=== PATIENT | female | born 1980 | race Two or more races ===

== ENCOUNTER 2023-04-06 20:20 | Emergency (ER) | payer MEDICAID, SELFPAY ==
--- NOTE | ~2023-04-06 | CT_ITS ---
EXAMINATION: CT ABDOMEN AND PELVIS WITHOUT CONTRAST CLINICAL INFORMATION: Lower abdominal pain, epigastric pain COMPARISON: None available. TECHNIQUE: Multidetector volumetric imaging was performed from the superior aspect of the liver through the pubic symphysis. Sagittal and coronal reformatted images were obtained on the technologist's workstation. This CT examination was performed using dose optimization techniques as appropriate, variously including the following: *Automated exposure control *Adjustment of mA and/or kV according to patient size (this includes techniques or standardized protocols for targeted exams where dose is matched to indication/reason for exam; i.e. extremities or head) *Use of iterative reconstruction technique DLP: 929 mGy-cm FINDINGS: LUNG BASES: The visualized lung bases are unremarkable. LIVER, GALLBLADDER, AND BILIARY TREE: The liver is normal in size, shape, and attenuation. No focal hepatic lesion or biliary ductal dilatation is identified on this noncontrast exam. The gallbladder is unremarkable with no evidence of radiopaque gallstones, gallbladder wall thickening, or obvious pericholecystic inflammatory changes. PANCREAS: Unremarkable. SPLEEN: Unremarkable. ADRENAL GLANDS: Unremarkable. KIDNEYS AND URETERS: No hydronephrosis or obstructing calculus. BLADDER: Unremarkable. GASTROINTESTINAL TRACT: No evidence of bowel obstruction or significant wall thickening. Appendix is suspected to be collapsed. No free fluid or free air is seen. ABDOMINAL WALL: No significant hernia is appreciated. LYMPH NODES: Normal. VASCULAR: Scattered atherosclerotic calcification. PELVIC VISCERA: Grossly unremarkable. OSSEOUS STRUCTURES: Degenerative endplate changes in the thoracic spine. CT/CT abdomen pelvis wo IV con IMPRESSION: No acute findings identified in the abdomen/pelvis.
[2023-04-06 20:51] VITALS: BP 144/75; PULSE 78; RESP 16; TEMP 37; O2SAT 98; BMI 40.5
--- NOTE | 2023-04-06 20:52 | ED_ITS ---
HPI - General Adult General Chief complaint: Abdominal Pain Stated complaint: upper abd pain Time Seen by Provider: 04/07/23 00:07 Source: patient Mode of arrival: ambulatory Limitations: no limitations History of Present Illness HPI narrative: Patient complaining of diffuse abdominal pain diarrhea lower abdominal pain last few days had history of right ovarian cyst status post oophorectomy in 10/06 no fever no chills patient to oxycodone felt better no fever no chills no urinary symptoms no vaginal discharge Related Data Previous Rx's Medication Instructions Recorded dicyclomine 20 mg tablet 20 mg PO QID PRN abdominal pain 04/07/23 #20 tabs ondansetron 4 mg disintegrating 4 mg PO Q6-8H PRN nausea and 04/07/23 tablet vomiting #7 tabs Allergies Allergy/AdvReac Type Severity Reaction Status Date / Time No Known Allergies Allergy Verified 04/06/23 20:56 Review of Systems 2 Review of Systems: Yes all other systems are reviewed and are negative PMFSH Social History Social History Advance Directives: No Advance Directives Information Provided: Yes Physical Exam ED Vital Signs: Vital Signs - 24 hr 04/06/23 20:51 04/06/23 23:44 Temperature 98.6 F 97.6 F Pulse Rate 78 76 Respiratory Rate 16 18 Blood Pressure 144/75 H 150/51 H Pulse Oximetry 98 100 Oxygen Delivery Method Room Air BMI result Body Mass Index 40.5 Appearance: Alert. Oriented X3. No acute distress. ENT: Pharynx normal. Oral Mucosa moist Neck: Normal inspection. Neck supple. CVS: Normal heart rate and rhythm. Pulses normal. Respiratory: No respiratory distress. Equal air entry bilateral, Abdomen: Soft diffuse tenderness of the abdomen no rebound tenderness or guarding. Bowel sounds are present, no mass palpable, no CVA tenderness Skin: Skin warm and dry. Normal skin color. Normal skin turgor. Extremities: No lower extremity edema. No calf tenderness Neuro: Oriented X 3. No motor deficit. Course Course Course Narrative: This is a rapid medical exam: Additional HPI, ROS, PE not included below will be deferred to primary provider. Patient is a 42-year-old female presenting to the emergency department with complaint of right upper abdominal pain radiating to right lower quadrant since Monday. Reports nausea, and diarrhea today, denies vomiting. Had right ovary removed recently and was prescribed oxycodone for this. Took 5mg of oxycodone today which improved her pain. Also complains of dyusira and frequency. Plan: labs, UA Medications Administered Discontinued Medications Generic Name Dose Route Start Last Admin Trade Name Teri PRN Reason Stop Dose Admin Sodium Chloride 1,000 mls @ 999 mls/hr 04/07/23 00:31 04/07/23 00:58 Ns IV 04/07/23 01:31 999 mls/hr .Q1H1M ONE Administration Ketorolac Tromethamine 30 mg 04/07/23 00:31 04/07/23 01:00 Ketorolac Tromethamine 30 Mg/Ml Vial IVPUSH 04/07/23 00:32 30 mg ONCE ONE Administration Ondansetron HCl 4 mg 04/07/23 00:31 04/07/23 01:00 Ondansetron Hcl 4 Mg/2 Ml Vial IVPUSH 04/07/23 00:32 4 mg ONCE ONE Administration Medical Decision Making Medical Decision Making [facility] Narrative: Patient ultrasound of the abdomen last month at [facility] negative for gallstones still complaining of lower abdominal pain diffuse CT scan was negative labs are stable discharge possible she has IBS Differential Diagnosis Differential Diagnoses: The differential diagnosis associated with the presentation includes Diverticulitis/ovarian cyst/IBS/UTI Lab Data [facility] Lab Attestation statement: I reviewed the patient's lab results. 04/06/23 22:10 04/06/23 22:10 Labs: Lab Results 04/06/23 Range/Units 22:10 WBC 8.3 (4.8-10.8) X10*3/uL RBC 4.69 (4.20-5.50) X10*6/uL Hgb 10.5 L (12.0-16.0) g/dl Hct 34.3 L (37.0-47.0) % MCV 73.1 L (80.0-98.0) fL MCH 22.4 L (27.0-33.0) pg MCHC 30.6 L (31.0-35.0) g/dl RDW 17.2 H (11.0-16.0) % Plt Count 248 (160-400) X10*3/uL MPV 11.6 (9.4-12.3) fL Immature Gran % (Auto) 0.2 (0.0-0.4) % Neut % (Auto) 57.8 (45-73) % Lymph % (Auto) 32.3 (20-40) % Posey % (Auto) 5.7 (2-11) % Eos % (Auto) 3.5 (0-4) % Baso % (Auto) 0.5 (0-2) % Lymph # (Auto) 2.7 (1.2-4.9) X10*3/uL Posey # (Auto) 0.5 (0.1-1.2) X10*3/uL Eos # (Auto) 0.3 (0.0-0.4) X10*3/uL Baso # (Auto) 0.0 (0.0-0.2) X10*3/uL Abs Immat Gran (auto) 0.02 (0.00-0.03) X10*3/uL Absolute Neuts (auto) 4.8 (2.0-8.3) x10*3/uL Absolute Nucleated RBC 0.000 (0.0-0.012) X10*3/uL Nucleated RBC % (auto) 0.0 (0.0-0.2) /100WBC Sodium 139 (135-145) mmol/L Potassium 3.6 (3.3-5.1) mmol/L Chloride 106 (96-108) mmol/L Carbon Dioxide 24 (22-29) mmol/L Anion Gap 13 (12-20) BUN 9 (9-16) mg/dL Creatinine 0.80 (0.5-1.4) mg/dL Estim Creat Clear Calc 106.4 Estimated GFR > 60 Random Glucose 109 (60-115) mg/dL Calcium 8.8 (8.4-10.2) mg/dL Total Bilirubin 0.5 (0.0-1.0) mg/dL AST 117 H (5-31) U/L ALT 82 H (0-31) U/L Alkaline Phosphatase 100 (39-117) U/L Total Protein 6.8 (6.5-8.0) g/dL Albumin 3.9 (3.5-5.0) g/dL Lipase 17 (8-78) U/L Beta HCG, Quant < 2 mIU/mL Urine Color Yellow Urine Appearance Clear Urine pH 5.5 (5.0-9.0) Ur Specific [place] 1.015 (1.005-1.025) Urine Protein Negative (Neg-Trace) mg/dL Urine Glucose (UA) Negative (Negative) mg/dL Urine Ketones Negative (Negative) mg/dL Urine Blood Negative (Negative) Urine Nitrite Negative (Negative) Ur Leukocyte Esterase Negative (Negative) Radiology Impression Discussion of test interpretation with radiology: I have reviewed the radiologist's reading. Discharge Plan Discharge Clinical Impression: Abdominal pain Patient Disposition: Home, Self-Care Instructions: Irritable Bowel Syndrome (ED), Abdominal Pain (ED) Additional Instructions: Possible you have IBS take medication as prescribed Medicine for nausea as prescribed Follow with PCP Prescriptions: New dicyclomine 20 mg tablet 20 mg PO QID PRN (Reason: abdominal pain) Qty: 20 0RF ondansetron 4 mg tablet,disintegrating 4 mg PO Q6-8H PRN (Reason: nausea and vomiting) Qty: 7 0RF Interventions: ED Discharge Assessment Last Done: 04/07/23 01:42 Discharge Date/Time: 04/07/23 01:42
[2023-04-06 22:16] LABS: MANUAL DIFF FLAG NO
[2023-04-06 22:19] LABS: Appearance Urine Clear; Color Urine Yellow; Glucose Urine UA Negative (Negative); Leukocyte Esterase Urine Negative (Negative); Nitrite Urine Negative (Negative); PH 5.5 (5.0-9.0); Specific Gravity - Urine 1.015 (1.005-1.025); Urine Blood Negative (Negative); Urine Ketones Negative (Negative); Urine Protein Negative (Neg-Trace)
[2023-04-06 22:24] LABS: Basophils Percent Auto 0.5 % (0-2); Eosinophils Absolute Auto 0.3 X10*3/uL (0.0-0.4); Eosinophils Percent Auto 3.5 % (0-4); Hematocrit 34.3 % (37.0-47.0); Hemoglobin 10.5 g/dl (12.0-16.0); Imm Gran Abs Auto 0.02 X10*3/uL (0.00-0.03); Imm Gran Pct Auto 0.2 % (0.0-0.4); Lymphocytes Absolute Auto 2.7 X10*3/uL (1.2-4.9); Lymphocytes Percent Auto 32.3 % (20-40); Mean Corpuscular HGB Conc 30.6 g/dl (31.0-35.0); Mean Corpuscular Hemoglobin 22.4 pg (27.0-33.0); Mean Corpuscular Volume 73.1 fL (80.0-98.0); Mean Platelet Volume 11.6 fL (9.4-12.3); Monocytes Absolute Auto 0.5 X10*3/uL (0.1-1.2); Monocytes Percent Auto 5.7 % (2-11); Neutrophils Absolute Auto 4.8 x10*3/uL (2.0-8.3); Neutrophils Percent Auto 57.8 % (45-73); Platelet Count 248 X10*3/uL (160-400); Red Blood Count 4.69 X10*6/uL (4.20-5.50); Red Cell Distribution Width 17.2 % (11.0-16.0); White Blood Count 8.3 X10*3/uL (4.8-10.8)
[2023-04-06 22:40] LABS: Alanine Aminotransferase 82 U/L (0-31); Albumin Level 3.9 g/dL (3.5-5.0); Alkaline Phosphatase 100 U/L (39-117); Anion Gap 13 (12-20); Aspartate Amino Transferase 117 U/L (5-31); Bilirubin Total 0.5 mg/dL (0.0-1.0); Blood Urea Nitrogen 9 mg/dL (9-16); Calcium 8.8 mg/dL (8.4-10.2); Carbon Dioxide 24 mmol/L (22-29); Chloride 106 mmol/L (96-108); Creatinine Clr Calc Pharmacy 106.4; Estimated Glomerular Filt Rate > 60; Glucose Random 109 mg/dL (60-115); Lipase 17 U/L (8-78); Potassium 3.6 mmol/L (3.3-5.1); Sodium 139 mmol/L (135-145); Total Protein 6.8 g/dL (6.5-8.0)
[2023-04-06 22:43] LABS: HCG Quantitative < 2 mIU/mL
[2023-04-06 23:44] VITALS: BP 150/51; PULSE 76; RESP 18; TEMP 36.4; O2SAT 100
--- OUTSIDE RECORDS SUMMARY | 2023-04-07 00:26 | XMS_ITS | Continuity of Care Document ---
Author Name Unknown Organization [facility] Address [address] [place] [phone]- Care Team Providers Care Senior Consulting Manager Name Role Phone Pj Benoit Primary Care Physician Encounter [facility] Date(s): 10/06/22 - 11/05/[address] [address]- Attending Physician: Elise Cronin Admitting Physician: Elise Cronin Referring Physician: AdmtrElise Allergies, Adverse Reactions, Alerts Substance Reaction Severity Status sulfa drugs Active Flagyl Active Contrast Dye IVP - Intravenous pyelogram Active Medications clonazePAM 0.5 mg oral tablet 0.5 tablet = 0.25 mg, By Mouth, Daily, 0 Refills, Maintenance, 09/20/22 15:24:00 EST, Tablet, Partial fill upon patient request if the prescription is for a schedule II opioid drug. Start Date: 09/20/22 Status: Ordered Descovy 200 mg-25 mg oral tablet 1 tablet, By Mouth, Daily, # 30 tablet, 0 Refills, Maintenance, 05/20/21 14:37:00 EDT, Tablet, Partial fill upon patient request if the prescription is for a schedule II opioid drug. Start Date: 05/20/21 Status: Ordered FLUoxetine (Eqv-Prozac) By Mouth, Daily, 0 Refills, Maintenance, 10/19/20 18:40:00 EDT, Partial fill upon patient request if the prescription is for a schedule II opioid drug. Start Date: 10/19/20 Status: Ordered hydrochlorothiazide-lisinopril 25 mg-20 mg oral tablet 1 tablet, By Mouth, Daily, 0 Refills, Maintenance, 09/08/21 11:38:00 EST, Partial fill upon patientrequest if the prescription is for a schedule II opioid drug. Start Date: 09/08/21 Status: Ordered ibuprofen 600 mg oral tablet 600 mg, 1, tablet, By Mouth, Every 6 hours, PRN, # 40 tablet, Refills 0, Maintenance, Pain , Mild for pain, 09/20/22 15:29:00 EST, Partial fill upon patient request if the prescription is for a schedule II opioid drug. Start Date: 09/20/22 Status: Ordered lidocaine 5% topical film 1 patch, Topically, Daily, PRN Pain , Moderate, # 5 patch, 0 Refills, Maintenance, 09/05/20 19:42:00 EST, [facility] #[id number], Partial fill upon patient request if the prescription is for a schedule II opioid drug., 1 patch Topically Daily,x5... Start Date: 09/05/20 Stop Date: 09/10/20 Status: Ordered naproxen sodium 550 mg oral tablet 1 tablet, By Mouth, 2 times a day, PRN NEEDED FOR ARTHRITIS, # 20 tablet, 0 Refills, Maintenance, 10/20/22 13:11:00 EDT, [facility] #[id number], 160, cm, 10/06/22 13:08:00 EDT, Height, 107.1,kg, 06/11/21 17:11:00 EST, Dry Weight Start Date: 10/20/22 Status: Ordered Tivicay 50 mg oral tablet 1 tablet = 50 mg, By Mouth, Daily, # 30 tablet, 0 Refills, Maintenance, 05/20/21 9:06:00 EDT, Tablet, Partial fill upon patient request if the prescription is for a schedule II opioid drug. Start Date: 05/20/21 Status: Ordered traMADol 50 mg oral tablet 1 tablet = 50 mg, By Mouth, Every 4 hours, PRN as needed for pain, 0 Refills, Maintenance, 09/20/2314:29:00 EST, Tablet, Partial fill upon patient request if the prescription is for a schedule II opioid drug. Start Date: 09/20/22 Status: Ordered Zoloft 25 mg oral tablet 1 tablet = 25 mg, By Mouth, Daily, # 30 tablet, 0 Refills, Maintenance, 09/20/22 15:24:00 EST, Tablet, Partial fill upon patient request if the prescription is for a schedule II opioid drug. Start Date: 09/20/22 Status: Ordered ZyrTEC 10 mg oral tablet 1 tablet = 10 mg, By Mouth, Daily, # 30 tablet, 0 Refills, Maintenance, 09/20/22 15:24:00 EST, Tablet, Partial fill upon patient request if the prescription is for a schedule II opioid drug. Start Date: 09/20/22 Status: Ordered Problem List Condition Confirmation Course Effective Dates Status [facility] atus Informant Anxiety Confirmed Active Depression Confirmed Active Fibromyalgia Confirmed Active HIV disease Confirmed Active Hypertension Confirmed Active AMA (advanced maternal age) multigravida 35+ Confirmed Active Panic attacks Confirmed Active Severe obesity Confirmed Active Social History Social History Type Response Smoking Status Former smoker, quit more than 30 days ago; Other: Quit 2 weeks ago; entered on: 05/20/21 Sex Patient Care team information Care Team Personnel Name: Pj Benoit Position: [facility] Outreach Member Role: PCP Address: Address: [address] [place] [address]- Care Team Related Persons Name: SVEN ARGUETA
--- OUTSIDE RECORDS SUMMARY | 2023-04-07 00:26 | XMS_ITS | Continuity of Care Document ---
Author Name Unknown Organization [facility] Address [address] [place] [phone]- Care Team Providers Care Doughnut Icer Name Role Phone Not on Staff, PCP Primary Care Physician Unavail able Encounter [facility] Date(s): 04/08/21 - 06/09/21 [facility] [address] [place] [address]- Attending Physician: Anat Uriarte MD Admitting Physician: Anat Uriarte MD Referring Physician: Almaz POLISHER IMPLANT, Vashti Allergies, Adverse Reactions, Alerts Substance Reaction Severity Status sulfa drugs Active Contrast Dye IVP - Intravenous pyelogram Active Medications Descovy 200 mg-25 mg oral tablet 1 [...] opioid drug. Start Date: 10/19/20 Status: Ordered lidocaine 5% topical film 1 patch, Topically, Daily, PRN Pain , Moderate, # 5 patch, 0 Refills, Maintenance, 09/05/20 19:42:00 [facility], [facility] #[id number], Partial fill upon patient request if the prescription is for a schedule II opioid drug., 1 patch Topically Daily,x5... Start Date: 09/05/20 Stop Date: 09/10/20 Status: Ordered Multivitamins with Folic Acid 1 mg oral capsule See Instructions, TAKE ONE DAILY BY MOUTH, # 100 capsule, 3 Refills, Maintenance, 05/31/21 8:43:00 [facility] #[id number], Partial fill upon patient request if the prescription is for a schedule II opioid drug., TAKE ONE DAILY BY MOUTH, 160,... Start Date: 05/31/21 Status: Ordered Tivicay 50 mg oral tablet 1 tablet = 50 mg, By Mouth, Daily, # 30 tablet, 0 Refills, Maintenance, 05/20/21 9:06:00 EDT, Tablet, Partial fill upon patient request if the prescription is for a schedule II opioid drug. Start Date: 05/20/21 Status: Ordered Vasotec 20 mg oral tablet 1 tablet = 20 mg, By Mouth, Daily, # 30 tablet, 0 Refills, Maintenance, 05/20/21 8:46:00 EDT, Tablet, Partial fill upon patient request if the prescription is for a schedule II opioid drug. Start Date: 05/20/21 Status: Ordered Problem List Condition Effective Dates Status Health Status Inform ant Anxiety(Confirmed) Active Depression(Confirmed) Active Fibromyalgia(Confirmed) Active HIV disease(Confirmed) Active Hypertension(Confirmed) Active AMA (advanced maternal age) multigravida 35+(Confirmed) Active Panic attacks(Confirmed) Active Severe obesity(Confirmed) Active Social History Social History Type Response Smoking Status Former smoker, quit more than 30 days ago; Other: Quit 2 weeks ago; entered on: 05/20/21 Sex
--- OUTSIDE RECORDS SUMMARY | 2023-04-07 00:26 | XMS_ITS | Continuity of Care Document ---
Author Name Unknown Organization [facility] Address [address] [place] [address]- Care Team Providers Care Lens Fabricating Machine Tender Name Role Phone Pj Benoit Primary Care Physician Encounter [facility] Date(s): 12/06/22 - 01/05/[address] [address]- Attending Physician: Elise Cronin Admitting Physician: Elise [...] patch, 0 Refills, Maintenance, 09/05/20 19:42:00 EST, [facility] #[id number], Partial fill upon patient request if the prescription is for a schedule II opioid drug., 1 patch Topically Daily,x5... Start Date: 09/05/20 Stop Date: 09/10/20 Status: Ordered naproxen sodium 550 mg oral tablet 1 tablet, By Mouth, 2 times a day, PRN NEEDED FOR ARTHRITIS, # 20 tablet, 0 Refills, Maintenance, 10/20/22 13:11:00 EDT, [facility] #[id number], 160, cm, 10/06/22 13:08:00 EDT, Height, 107.1,kg, [...] List Condition Confirmation Course Effective Dates Status [facility] atus Informant Anxiety Confirmed Active Depression Confirmed [...] Care Team Personnel Name: Pj Benoit Position: [facility] Outreach Member Role: PCP Address: Address: [address] [place] [address]- Care Team Related Persons Name: SVEN ARGUETA
--- OUTSIDE RECORDS SUMMARY | 2023-04-07 00:26 | XMS_ITS | Continuity of Care Document ---
Author Name Unknown Organization [facility] Address [address] [place] [address]- Care Team Providers Care Schedule Planning Manager Name Role Phone Pj Benoit Primary Care Physician Encounter [facility] Date(s): 09/23/22 - 10/26/[address] [address]- Attending Physician: Satya CRESPO, Lizandro Donovan Admitting Physician: Satya CRESPO, Lizandro Donovan Referring Physician: Steffanie lFetcher DO Allergies, Adverse Reactions, Alerts Substance Reaction Severity [...] patch, 0 Refills, Maintenance, 09/05/20 19:42:00 EST, [facility] #[id number], Partial fill upon patient request if the prescription is for a schedule II opioid drug., 1 patch Topically Daily,x5... Start Date: 09/05/20 Stop Date: 09/10/20 Status: Ordered naproxen sodium 550 mg oral tablet 1 tablet, By Mouth, 2 times a day, PRN NEEDED FOR ARTHRITIS, # 20 tablet, 0 Refills, Maintenance, 10/20/22 13:11:00 EDT, [facility] #[id number], 160, cm, 10/06/22 13:08:00 EDT, Height, 107.1,kg, [...] List Condition Confirmation Course Effective Dates Status [facility] at[facility] Informant Anxiety Confirmed Active Depression Confirmed [...] Care Team Personnel Name: Pj Benoit Position: [facility] Outreach Member Role: PCP Address: Address: [address] [place] [address]- Care Team Related Persons Name: SVEN ARGUETA
--- OUTSIDE RECORDS SUMMARY | 2023-04-07 00:26 | XMS_ITS | Continuity of Care Document ---
Author Name Unknown Organization [facility] Address [address] [place] [address]- Care Team Providers Care Warehouse Team Member Name Role Phone Not on Staff, PCP Primary Care Physician Unavail able Encounter [facility] Date(s): 05/20/21 - 06/24/21 [facility] [address] [address]- Attending Physician: Not on Staff, Attending MD Referring Physician: Not on Staff, Referring MD Allergies, Adverse Reactions, Alerts Substance Reaction Severity Status sulfa drugs Active Flagyl Active Contrast Dye IVP - Intravenous pyelogram Active Medications clindamycin topical 2% cream 1 application, Vaginally, Daily at bedtime, # 40 Gm, 0 Refills, Maintenance, 06/14/21 16:01:00 EST,[facility], [facility] #[id number], Partial fill upon patient request if the prescription is for a schedule II opioid drug., 1 application Vaginally Da... Start Date: 06/14/21 Stop Date: 06/21/21 Status: Ordered Descovy 200 mg-25 mg oral tablet 1 tablet, By Mouth, Daily, # 30 tablet, 0 Refills, Maintenance, 05/20/21 14:37:00 EDT, Tablet, Partial fill upon patient request if the prescription is for a schedule II opioid drug. Start Date: 05/20/21 Status: Ordered Flagyl 500 mg oral tablet 1 tablet = 500 mg, By Mouth, Every 12 hours, Please refrain from consuming alcohol while on this medication, # 14 tablet, 0 Refills, Maintenance, 06/14/21 13:40:00 EST, Tablet, [facility] #[id number], Partial fill upon patient request if the pres... Start Date: 06/14/21 Stop Date: 06/21/21 Status: Ordered FLUoxetine (Eqv-Prozac) By Mouth, Daily, 0 Refills, Maintenance, 10/19/20 18:40:00 EDT, Partial fill upon patient request if the prescription is for a schedule II opioid drug. Start Date: 10/19/20 Status: Ordered lidocaine 5% topical film 1 patch, Topically, Daily, PRN Pain , Moderate, # 5 patch, 0 Refills, Maintenance, 09/05/20 19:42:00 EST, [facility] #[id number], Partial fill upon patient request if the prescription is for a schedule II opioid drug., 1 patch Topically Daily,x5... Start Date: 09/05/20 Stop Date: 09/10/20 Status: Ordered miSOPROStol 200 mcg oral tablet See Instructions, Place 2 tabs between cheek and gums on EACH side, let dissolve for 30 min then swallow the rest with water, # 4 tablet, 1 Refills, Maintenance, 06/11/21 22:09:00 EST, [facility] #[id number], Partial fill upon patient request if... Start Date: 06/11/21 Status: Ordered Multivitamins with Folic Acid 1 mg oral capsule See Instructions, TAKE ONE DAILY BY MOUTH, # 100 capsule, 3 Refills, Maintenance, 05/31/21 8:43:00 EST, [facility] #[id number], Partial fill upon patient request if the [...] opioid drug. Start Date: 05/20/21 Status: Ordered Zofran 4 mg oral tablet 1 tablet = 4 mg, By Mouth, Every 8 hours, # 12 tablet, 0 Refills, Maintenance, 06/11/21 22:09:00 EST, Tablet, [id number], Partial fill upon patient request if the prescription is fora schedule II opioid drug., 160, cm, 06/01/21 8:15:... Start Date: 06/11/21 Status: Ordered Problem List Condition Effective Dates [...]
--- OUTSIDE RECORDS SUMMARY | 2023-04-07 00:26 | XMS_ITS | Continuity of Care Document ---
Author Name Unknown Organization [facility] Address [address] [place] [address]- Care Team Providers Care Director Credit Risk Name Role Phone Pj Benoit Primary Care Physician [id number] Date(s): 09/28/21 - 10/28/[address] [address]- Attending Physician: Elise Cronin Admitting Physician: AdmtrElise Referring Physician: Admtr, Ollie8 Allergies, Adverse Reactions, Alerts Substance Reaction Severity [...] opioid drug. Start Date: 09/08/21 Status: Ordered lidocaine 5% topical film 1 patch, Topically, Daily, PRN Pain , Moderate, # 5 patch, 0 Refills, Maintenance, 09/05/20 19:42:00 [facility], [facility] #[id number], Partial fill upon patient request if the prescription is for a schedule II opioid drug., 1 patch Topically Daily,x5... Start Date: 09/05/20 Stop Date: 09/10/20 Status: Ordered Tivicay 50 mg oral tablet [...]
--- OUTSIDE RECORDS SUMMARY | 2023-04-07 00:26 | XMS_ITS | Continuity of Care Document ---
Author Name Unknown Organization [facility] Address [address] [place] [address]- Care Team Providers Care Block Captain Name Role Phone Pj Benoit Primary Care Physician Encounter [facility] [id number] Date(s): 11/18/22 - 12/18/[address] [address]- Allergies, Adverse Reactions, Alerts Substance Reaction Severity [...] patch, 0 Refills, Maintenance, 09/05/20 19:42:00 EST, [facility] #[id number], Partial fill upon patient request if the prescription is for a schedule II opioid drug., 1 patch Topically Daily,x5... Start Date: 09/05/20 Stop Date: 09/10/20 Status: Ordered naproxen sodium 550 mg oral tablet 1 tablet, By Mouth, 2 times a day, PRN NEEDED FOR ARTHRITIS, # 20 tablet, 0 Refills, Maintenance, 10/20/22 13:11:00 EDT, [facility] #[id number], 160, cm, 10/06/22 13:08:00 EDT, Height, 107.1,kg, [...] Team Personnel Name: Pj Benoit Position: [facility] Outreach Member Role: PCP Address: Address: [address] [place] [address]- Care Team Related Persons Name: SVEN ARGUETA
--- OUTSIDE RECORDS SUMMARY | 2023-04-07 00:26 | XMS_ITS | Continuity of Care Document ---
Author Name Unknown Organization [facility] Address [address] [place] [address]- Care Team Providers Care Cigarette Examiner Name Role Phone Not on Staff, PCP Primary Care Physician Unavail able [place] [facility] [place] 06/09/21 - 07/15/21 [facility] [address] [address]- Attending Physician: Deon Jj MD Admitting Physician: Deon Jj MD Referring Physician: Calista Pate DO Allergies, Adverse Reactions, Alerts Substance Reaction Severity Status sulfa drugs Active Flagyl Active Contrast Dye IVP - Intravenous pyelogram Active Medications clindamycin topical 2% cream 1 application, Vaginally, Daily at bedtime, # 40 Gm, 0 Refills, Maintenance, 06/14/21 16:01:00 EST,Cream, [facility] #[id number], Partial fill upon patient request if the [...] 0 Refills, Maintenance, 06/14/21 13:40:00 EST, Tablet, [facility] #[id number], Partial fill upon patient request if the [...] patch, 0 Refills, Maintenance, 09/05/20 19:42:00 EST, [facility] #[id number], Partial fill upon patient request if the [...] tablet, 1 Refills, Maintenance, 06/11/21 22:09:00 EST, [facility] #[id number], Partial fill upon patient request if... Start Date: 06/11/21 Status: Ordered Multivitamins with Folic Acid 1 mg oral capsule See Instructions, TAKE ONE DAILY BY MOUTH, # 100 capsule, 3 Refills, Maintenance, 05/31/21 8:43:00 EST, [facility] #[id number], Partial fill upon patient request if the [...] 0 Refills, Maintenance, 06/11/21 22:09:00 EST, [facility], [id number], Partial fill upon patient request if the [...]
--- OUTSIDE RECORDS SUMMARY | 2023-04-07 00:26 | XMS_ITS | Continuity of Care Document ---
Author Name Unknown Organization [facility] Address [address] [place] [address]- Care Team Providers Care Wine Master Name Role Phone Pj Benoit Primary [facility] Physician [id number] - 10[facility]28[facility] [address]- Attending Physician: Not on Staff, Attending MD Allergies, Adverse Reactions, Alerts Substance Reaction [...] patch, 0 Refills, Maintenance, 09/05/20 19:42:00 EST, [facility] #[id number], Partial fill upon patient request if the [...]
--- OUTSIDE RECORDS SUMMARY | 2023-04-07 00:26 | XMS_ITS | Continuity of Care Document ---
Author Name Unknown Organization [facility] Address [address] [place] [address]- Care Team Providers Care Technical Cable Jointer Name Role Phone Not on Staff, PCP Primary Care Physician Unavail able En[place] [facility] [place] Date(s): 05/25/21 - 06/24/21 [facility] [address] [address]- Allergies, Adverse Reactions, Alerts Substance Reaction Severity Status sulfa drugs Active Flagyl Active Contrast Dye IVP - Intravenous pyelogram Active Medications clindamycin topical 2% cream 1 application, Vaginally, Daily at bedtime, # 40 Gm, 0 Refills, Maintenance, 06/14/21 16:01:00 EST,Cream, [facility] #[id number], Partial fill upon patient request if the [...] 0 Refills, Maintenance, 06/14/21 13:40:00 EST, Tablet, [facility] #[id number], Partial fill upon patient request if the [...] patch, 0 Refills, Maintenance, 09/05/20 19:42:00 EST, [facility] #[id number], Partial fill upon patient request if the prescription is for a schedule II opioid drug., 1 patch Topically Daily,x5... Start Date: 09/05/20 Stop Date: 09/10/20 Status: Ordered miSOPROStol 200 mcg oral tablet See Instructions, Place 2 tabs between cheek and gums on EACH side, let dissolve for 30 min then swallow the rest with water, # 4 tablet, 1 Refills, Maintenance, 06/11/21 22:09:00 [facility] #[id number], Partial fill upon patient request if... Start Date: 06/11/21 Status: Ordered Multivitamins with Folic Acid 1 mg oral capsule See Instructions, TAKE ONE DAILY BY MOUTH, # 100 capsule, 3 Refills, Maintenance, 05/31/21 8:43:00 [facility][id number], Partial fill upon patient request if the [...] 0 Refills, Maintenance, 06/11/21 22:09:00 EST, Tablet, [facility] #[id number], Partial fill upon patient request if the [...]
--- OUTSIDE RECORDS SUMMARY | 2023-04-07 00:26 | XMS_ITS | Continuity of Care Document ---
Author Name Unknown Organization [facility] Address [address] [place] [address]- Care Team Providers Care Upholstery Estimator Name Role Phone Pj Benoit Primary Care Physician [phone] [place] [facility] [place] Date(s): 08/12/22 - 09/11/22 [facility] [address] [place] [address]- Attending Physician: Elise Cronin Admitting Physician: AdmtrElise Referring Physician: Admtr Ar8 Allergies, Adverse Reactions, Alerts Substance Reaction Severity [...] patch, 0 Refills, Maintenance, 09/05/20 19:42:00 EST, [facility] #[id number], Partial fill upon patient request if the [...] Date: 05/20/21 Status: Ordered Problem List Condition Confirmation Course [...] Care Team Personnel Name: Pj Benoit Position: [facility] Outreach Member Role: PCP Address: Address: [address] [place] [id number] Care Team Related Persons Name: SVEN ARGUETA
--- OUTSIDE RECORDS SUMMARY | 2023-04-07 00:26 | XMS_ITS | Continuity of Care Document ---
Author Name Unknown Organization [facility] Address [address] [place] [address]- Care Team Providers Care Inspector Filters Name Role Phone Pj Benoit Primary Care Physician [place] [facility] [place] - 10/07/[address] [address]- Allergies, Adverse Reactions, Alerts Substance Reaction Severity [...] patch, 0 Refills, Maintenance, 09/05/20 19:42:00 EST, [facility] #[id number], Partial fill upon patient request if the prescription is for a schedule II opioid drug., 1 patch Topically Daily,x5... Start Date: 09/05/20 Stop Date: 09/10/20 Status: Ordered naproxen sodium 550 mg oral tablet 1 tablet, By Mouth, 2 times a day, PRN NEEDED FOR ARTHRITIS, # 20 tablet, 0 Refills, Maintenance, 10/03/22 12:08:00 EDT, [facility] #[id number], 160, cm, 09/20/22 15:22:00 EST, Height, 107.1,kg, 06/11/21 17:11:00 EST, Dry Weight Start Date: 10/03/22 Status: Ordered Tivicay 50 mg oral tablet [...] CENTER Outreach Member Role: PCP Address: Address: [address] [place] [address]- Care Team Related Persons Name: SVEN ARGUETA
--- OUTSIDE RECORDS SUMMARY | 2023-04-07 00:26 | XMS_ITS | Continuity of Care Document ---
Author Name Unknown Organization [facility] Address [address] [place] [address]- Care Team Providers Care Optical Engineering Manager Name Role Phone Pj Benoit Primary Care Physician [phone] Encounter [facility] [place] Date(s): 09/21/22 - 10/21/22 [facility] [address] [place] [address]- Allergies, Adverse Reactions, Alerts Substance Reaction Severity [...] patch, 0 Refills, Maintenance, 09/05/20 19:42:00 EST, [facility] #[id number], Partial fill upon patient request if the prescription is for a schedule II opioid drug., 1 patch Topically Daily,x5... Start Date: 09/05/20 Stop Date: 09/10/20 Status: Ordered naproxen sodium 550 mg oral tablet 1 tablet, By Mouth, 2 times a day, PRN NEEDED FOR ARTHRITIS, # 20 tablet, 0 Refills, Maintenance, 10/20/22 13:11:00 EDT, [facility] #[id number], 160, cm, 10/06/22 13:08:00 EDT, Height, 107.1,kg, [...] Care Team Personnel Name: Pj Benoit Position: [facility] Outreach Member Role: PCP Address: Address: [address] [place] [address]- Care Team Related Persons Name: SVEN ARGUETA
--- OUTSIDE RECORDS SUMMARY | 2023-04-07 00:26 | XMS_ITS | Continuity of Care Document ---
Author Name Unknown Organization [facility] Address [address] [place] [address]- Care Team Providers Care Bank Runner Name Role Phone Pj Benoit Primary Care Physician [place] [facility] [place](s[place] 12/06/22 - 01/05/[address] [address]- Allergies, Adverse Reactions, Alerts Substance Reaction Severity [...] patch, 0 Refills, Maintenance, 09/05/20 19:42:00 EST, [facility] #[id number], Partial fill upon patient request if the prescription is for a schedule II opioid drug., 1 patch Topically Daily,x5... Start Date: 09/05/20 Stop Date: 09/10/20 Status: Ordered naproxen sodium 550 mg oral tablet 1 tablet, By Mouth, 2 times a day, PRN NEEDED FOR ARTHRITIS, # 20 tablet, 0 Refills, Maintenance, 10/20/22 13:11:00 EDT, [facility] #[id number], 160, cm, 10/06/22 13:08:00 EDT, Height, 107.1,kg, [...] Care Team Personnel Name: Pj Benoit Position: [facility] Outreach Member Role: PCP Address: Address: [address] [place] [address]- Care Team Related Persons Name: SVEN ARGUETA
--- OUTSIDE RECORDS SUMMARY | 2023-04-07 00:26 | XMS_ITS | Continuity of Care Document ---
Author Name Unknown Organization [facility] Address [address] [place] [address]- Care Team Providers Care Environmental Science Technician Name Role Phone Not on Staff, PCP Primary Care Physician Unavail able [place] [facility] [place] 06/30/21 - 07/30/21 [facility] [address] [place] [id number] Attending Physician: Elise Cronin Admitting Physician: AdmtrElise Referring Physician: Admtr, Ar8 Allergies, Adverse Reactions, Alerts Substance Reaction Severity Status sulfa drugs Active Flagyl Active Contrast Dye IVP - Intravenous pyelogram Active Medications clindamycin topical 2% cream 1 application, Vaginally, Daily at bedtime, # 40 Gm, 0 Refills, Maintenance, 06/14/21 16:01:00 EST,Cream, [facility] #[id number], Partial fill upon patient request if the [...] 0 Refills, Maintenance, 06/14/21 13:40:00 EST, Tablet, [facility] #[id number], Partial fill upon patient request if the [...] patch, 0 Refills, Maintenance, 09/05/20 19:42:00 EST, [facility] #[id number], Partial fill upon patient request if the prescription is for a schedule II opioid drug., 1 patch Topically Daily,x5... Start Date: 09/05/20 Stop Date: 09/10/20 Status: Ordered miSOPROStol 200 mcg oral tablet See Instructions, Place 2 tabs between cheek and gums on EACH side, let dissolve for 30 min then swallow the rest with water, # 4 tablet, 1 Refills, Maintenance, 06/11/21 22:09:00 [facility] #[id number], Partial fill upon patient request if... Start Date: 06/11/21 Status: Ordered Multivitamins with Folic Acid 1 mg oral capsule See Instructions, TAKE ONE DAILY BY MOUTH, # 100 capsule, 3 Refills, Maintenance, 05/31/21 8:43:00 [id number], Partial fill upon patient request if the [...] 0 Refills, Maintenance, 06/11/21 22:09:00 EST, Tablet, [id number], Partial fill upon patient request if the [...]
--- OUTSIDE RECORDS SUMMARY | 2023-04-07 00:26 | XMS_ITS | Continuity of Care Document ---
Author Name Unknown Organization [facility] Address [address] [place] [address]- Care Team Providers Care Associate Relations Specialist Name Role Phone Not on Staff, PCP Primary Care Physician Unavail able En[place] [facility] [place] Date(s): 05/28/21 - 06/27/21 [facility] [address] [address]- Allergies, Adverse Reactions, Alerts Substance Reaction Severity Status sulfa drugs Active Flagyl Active Contrast Dye IVP - Intravenous pyelogram Active Medications clindamycin topical 2% cream 1 application, Vaginally, Daily at bedtime, # 40 Gm, 0 Refills, Maintenance, 06/14/21 16:01:00 EST,Cream, [email or web address] #[id number], Partial fill upon patient request if the [...] 0 Refills, Maintenance, 06/14/21 13:40:00 EST, Tablet, [email or web address] #[id number], Partial fill upon patient request if the [...] patch, 0 Refills, Maintenance, 09/05/20 19:42:00 EST, [facility] #[id number], Partial fill upon patient request if the prescription is for a schedule II opioid drug., 1 patch Topically Daily,x5... Start Date: 09/05/20 Stop Date: 09/10/20 Status: Ordered miSOPROStol 200 mcg oral tablet See Instructions, Place 2 tabs between cheek and gums on EACH side, let dissolve for 30 min then swallow the rest with water, # 4 tablet, 1 Refills, Maintenance, 06/11/21 22:09:00 [email or web address][id number], Partial fill upon patient request if... Start Date: 06/11/21 Status: Ordered Multivitamins with Folic Acid 1 mg oral capsule See Instructions, TAKE ONE DAILY BY MOUTH, # 100 capsule, 3 Refills, Maintenance, 05/31/21 8:43:00 [id number], Partial fill upon patient request if the [...] 0 Refills, Maintenance, 06/11/21 22:09:00 EST, Tablet, [email or web address] #[id number], Partial fill upon patient request if the [...]
--- OUTSIDE RECORDS SUMMARY | 2023-04-07 00:26 | XMS_ITS | Continuity of Care Document ---
Author Name Unknown Organization [facility] Address [address] [place] [address]- Care Team Providers Care Roll Setter Name Role Phone Pj Benoit Primary Care Physician [phone] [place] [facility] [place] Date(s): 11/18/21 - 12/18/[address] [address]- Allergies, Adverse Reactions, Alerts Substance Reaction Severity [...] patch, 0 Refills, Maintenance, 09/05/20 19:42:00 EST, [facility] #[id number], Partial fill upon patient request if the [...]
--- OUTSIDE RECORDS SUMMARY | 2023-04-07 00:27 | XMS_ITS | Continuity of Care Document ---
Author Name Unknown Organization [facility] Address [address] [place] [address]- Care Team Providers Care Director Call Center Sales Name Role Phone Not on Staff, PCP Primary Care Physician Unavail able En[facility] [place] Date(s): 06/14/21 - 07/14/21 [facility] [address] [address]- Allergies, Adverse Reactions, Alerts Substance Reaction Severity Status sulfa drugs Active Flagyl Active Contrast Dye IVP - Intravenous pyelogram Active Medications clindamycin topical 2% cream 1 application, Vaginally, Daily at bedtime, # 40 Gm, 0 Refills, Maintenance, 06/14/21 16:01:00 EST,Cream, [facility] #[id number], Partial fill upon patient request if the [...] 0 Refills, Maintenance, 06/14/21 13:40:00 EST, Tablet, [facility] #[id number], Partial fill upon patient request if the [...] patch, 0 Refills, Maintenance, 09/05/20 19:42:00 EST, [facility] #[id number], Partial fill upon patient request if the prescription is for a schedule II opioid drug., 1 patch Topically Daily,x5... Start Date: 09/05/20 Stop Date: 09/10/20 Status: Ordered miSOPROStol 200 mcg oral tablet See Instructions, Place 2 tabs between cheek and gums on EACH side, let dissolve for 30 min then swallow the rest with water, # 4 tablet, 1 Refills, Maintenance, 06/11/21 22:09:00 [facility][id number], Partial fill upon patient request if... Start Date: 06/11/21 Status: Ordered Multivitamins with Folic Acid 1 mg oral capsule See Instructions, TAKE ONE DAILY BY MOUTH, # 100 capsule, 3 Refills, Maintenance, 05/31/21 8:43:00 [facility] #[id number], Partial fill upon patient request if the [...] 0 Refills, Maintenance, 06/11/21 22:09:00 EST, Tablet, [facility] #[id number], Partial fill upon patient request if the [...]
--- OUTSIDE RECORDS SUMMARY | 2023-04-07 00:27 | XMS_ITS | Continuity of Care Document ---
Author Name Unknown Organization [facility] Address [address] [place] [address]- Care Team Providers Care Electrical Equipment Technician Name Role Phone Pj Benoit Primary Care Physician [place] [facility]/22 - 12/21/[address] [address]- Allergies, Adverse Reactions, Alerts Substance Reaction Severity [...] patch, 0 Refills, Maintenance, 09/05/20 19:42:00 EST, [facility] #[id number], Partial fill upon patient request if the prescription is for a schedule II opioid drug., 1 patch Topically Daily,x5... Start Date: 09/05/20 Stop Date: 09/10/20 Status: Ordered naproxen sodium 550 mg oral tablet 1 tablet, By Mouth, 2 times a day, PRN NEEDED FOR ARTHRITIS, # 20 tablet, 0 Refills, Maintenance, 10/20/22 13:11:00 EDT, [facility] #[id number], 160, cm, 10/06/22 13:08:00 EDT, Height, 107.1,kg, [...] Care Team Personnel Name: Pj Benoit Position: [facility] Outreach Member Role: PCP Address: Address: [address] [place] [address]- Care Team Related Persons Name: SVEN ARGUETA
--- OUTSIDE RECORDS SUMMARY | 2023-04-07 00:27 | XMS_ITS | Continuity of Care Document ---
Author Name Unknown Organization [facility] Address [address] [place] [address]- Care Team Providers Care Cardiovascular Physician Assistant Name Role Phone Pj Benoit Primary Care Physician [place] [facility] [place] 10/07/22 [facility] [address] [place] [address]- Allergies, Adverse Reactions, Alerts Substance Reaction Severity [...] a schedule II opioid drug. Start Date: 2/23/22 Status: Ordered ibuprofen 600 mg oral tablet [...] patch, 0 Refills, Maintenance, 09/05/20 19:42:00 EST, [facility] #[id number], Partial fill upon patient request if the prescription is for a schedule II opioid drug., 1 patch Topically Daily,x5... Start Date: 09/05/20 Stop Date: 09/10/20 Status: Ordered naproxen sodium 550 mg oral tablet 1 tablet, By Mouth, 2 times a day, PRN NEEDED FOR ARTHRITIS, # 20 tablet, 0 Refills, Maintenance, 10/03/22 12:08:00 EDT, [facility] #[id number], 160, cm, 09/20/22 15:22:00 EST, Height, 107.1,kg, [...] Care Team Personnel Name: Pj Benoit Position: [facility] Outreach Member Role: PCP Address: Address: [address] [place] [address]- Care Team Related Persons Name: SVEN ARGUETA
--- OUTSIDE RECORDS SUMMARY | 2023-04-07 00:27 | XMS_ITS | Continuity of Care Document ---
Author Name Unknown Organization [facility] Address [address] [place] [address]- Care Team Providers Care Manager Learning Name Role Phone Not on Staff, PCP Primary Care Physician Unavail able En[facility] [place] Date(s): 06/11/21 - 07/11/21 [facility] [address] [address]- Allergies, Adverse Reactions, Alerts Substance Reaction Severity Status sulfa drugs Active Flagyl Active Contrast Dye IVP - Intravenous pyelogram Active Medications clindamycin topical 2% cream 1 application, Vaginally, Daily at bedtime, # 40 Gm, 0 Refills, Maintenance, 06/14/21 16:01:00 EST,Cream, [facility] #[id number], Partial fill upon patient request if the [...] 0 Refills, Maintenance, 06/14/21 13:40:00 EST, Tablet, [facility] #[id number], Partial fill upon patient request if the [...] patch, 0 Refills, Maintenance, 09/05/20 19:42:00 EST, [facility] #[id number], Partial fill upon patient request if the prescription is for a schedule II opioid drug., 1 patch Topically Daily,x5... Start Date: 09/05/20 Stop Date: 09/10/20 Status: Ordered miSOPROStol 200 mcg oral tablet See Instructions, Place 2 tabs between cheek and gums on EACH side, let dissolve for 30 min then swallow the rest with water, # 4 tablet, 1 Refills, Maintenance, 06/11/21 22:09:00 [facility] #[id number], Partial fill upon patient request if... Start Date: 06/11/21 Status: Ordered Multivitamins with Folic Acid 1 mg oral capsule See Instructions, TAKE ONE DAILY BY MOUTH, # 100 capsule, 3 Refills, Maintenance, 05/31/21 8:43:[facility][id number], Partial fill upon patient request if the [...] 0 Refills, Maintenance, 06/11/21 22:09:00 EST, Tablet, [facility] #[id number], Partial fill upon patient request if the [...]
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
--- OUTSIDE RECORDS SUMMARY | 2023-04-07 00:27 | XMS_ITS | Continuity of Care Document ---
Author Name Unknown Organization [facility] ter Address [address] [place] [address]- Care Team Providers Care Toddler Caregiver Name Role Phone Not on Staff, PCP Primary Care Physician Unavail able [place] [facility] [place] - 02/21/[address] [address]- Attending Physician: Hernán Esteban Admitting Physician: Hernán Esteban Referring Physician: Hernán Esteban Allergies, Adverse Reactions, Alerts Substance Reaction Severity [...] patch, 0 Refills, Maintenance, 09/05/20 19:42:00 [facility], [facility] #[id number], Partial fill upon patient request if the prescription is for a schedule II opioid drug., 1 patch Topically Daily,x5... Start Date: 09/05/20 Stop Date: 09/10/20 Status: Ordered
--- OUTSIDE RECORDS SUMMARY | 2023-04-07 00:27 | XMS_ITS | Continuity of Care Document ---
Author Name Unknown Organization [facility] Address [address] [place] [address]- Care Team Providers Care Tailer Out Name Role Phone Not on Staff, PCP Primary Care Physician Unavail able [place] [facility] [place] 05/10/21 - 06/09/21 [facility] [address] [place] [address]- Attending Physician: Elise Cronin Admitting Physician: Elise [...] 5 patch, 0 Refills, Maintenance, 09/05/20 19:42:00 [facility], [facility] #[id number], Partial fill upon patient request if the prescription is for a schedule II opioid drug., 1 patch Topically Daily,x5... Start Date: 09/05/20 Stop Date: 09/10/20 Status: Ordered Multivitamins with Folic Acid 1 mg oral capsule See Instructions, TAKE ONE DAILY BY MOUTH, # 100 capsule, 3 Refills, Maintenance, 05/31/21 8:43:00 [facility] #[id number], Partial fill upon patient request if the [...]
--- OUTSIDE RECORDS SUMMARY | 2023-04-07 00:27 | XMS_ITS | Continuity of Care Document ---
Author Name Unknown Organization [facility] Address [address] [place] [address]- Care Team Providers Care Cook Helper Dessert Name Role Phone Not on Staff, PCP Primary Care Physician Unavail able [place] [facility] [place] 06[place]01/21 - 07/01/21 [facility] [address] [address]- Allergies, Adverse Reactions, Alerts Substance Reaction Severity Status sulfa drugs Active Flagyl Active Contrast Dye IVP - Intravenous pyelogram Active Medications clindamycin topical 2% cream 1 application, Vaginally, Daily at bedtime, # 40 Gm, 0 Refills, Maintenance, 06/14/21 16:01:00 EST,Cream, [facility] #[id number], Partial fill upon patient request if the [...] 0 Refills, Maintenance, 06/14/21 13:40:00 EST, Tablet, [facility] #[id number], Partial fill upon patient request if the [...] patch, 0 Refills, Maintenance, 09/05/20 19:42:00 EST, [facility] #[id number], Partial fill upon patient request if the prescription is for a schedule II opioid drug., 1 patch Topically Daily,x5... Start Date: 09/05/20 Stop Date: 09/10/20 Status: Ordered miSOPROStol 200 mcg oral tablet See Instructions, Place 2 tabs between cheek and gums on EACH side, let dissolve for 30 min then swallow the rest with water, # 4 tablet, 1 Refills, Maintenance, 06/11/21 22:09:00 [facility] #[id number], Partial fill upon patient request if... Start Date: 06/11/21 Status: Ordered Multivitamins with Folic Acid 1 mg oral capsule See Instructions, TAKE ONE DAILY BY MOUTH, # 100 capsule, 3 Refills, Maintenance, 05/31/21 8:43:00 [id number], Partial fill upon patient request if the [...] 0 Refills, Maintenance, 06/11/21 22:09:00 EST, Tablet, [facility] #[id number], Partial fill upon patient request if the [...]
--- OUTSIDE RECORDS SUMMARY | 2023-04-07 00:27 | XMS_ITS | Continuity of Care Document ---
Author Name Unknown Organization [facility] Address [address] [place] [address] [address] [place] [address]- Care Team Providers Care Senior Ui Software Engineer Name Role Phone Pj Benoit Primary Care Physician [phone] [place] [facility] [place] 02/10/23 - 03/12/[address] [place] [address]- Attending Physician: Elise Cronin Admitting Physician: Elise [...] patch, 0 Refills, Maintenance, 09/05/20 19:42:00 EST, [facility] #[id number], Partial fill upon patient request if the prescription is for a schedule II opioid drug., 1 patch Topically Daily,x5... Start Date: 09/05/20 Stop Date: 09/10/20 Status: Ordered naproxen sodium 550 mg oral tablet 1 tablet, By Mouth, 2 times a day, PRN NEEDED FOR ARTHRITIS, # 20 tablet, 0 Refills, Maintenance, 10/20/22 13:11:00 EDT, [facility] #[id number], 160, cm, 10/06/22 13:08:00 EDT, Height, 107.1,kg, [...] List Condition Confirmation Course Effective Dates Status [facility] Anxiety Confirmed Active Depression Confirmed Active [...] Care Team Personnel Name: Pj Benoit Position: S Outreach Member Role: PCP Address: Address: [address] [place] [address]- Care Team Related Persons Name: SVEN ARGUETA
--- OUTSIDE RECORDS SUMMARY | 2023-04-07 00:27 | XMS_ITS | Continuity of Care Document ---
Author Name Unknown Organization [facility] Address [address] [place] [address] [address] [place] [address]- Care Team Providers Care Electronic Scale Assembler And Tester Name Role Phone Pj Benoit Primary Care Physician En[place] [facility] [place] Date(s): 12/20/22 - 03/12/[address] [place] [address]- Attending Physician: Not on Staff, Attending MD Referring Physician: Pj Benoit Allergies, Adverse Reactions, Alerts Substance Reaction Severity [...] patch, 0 Refills, Maintenance, 09/05/20 19:42:00 EST, [facility] #[id number], Partial fill upon patient request if the prescription is for a schedule II opioid drug., 1 patch Topically Daily,x5... Start Date: 09/05/20 Stop Date: 09/10/20 Status: Ordered naproxen sodium 550 mg oral tablet 1 tablet, By Mouth, 2 times a day, PRN NEEDED FOR ARTHRITIS, # 20 tablet, 0 Refills, Maintenance, 10/20/22 13:11:00 EDT, [facility] #[id number], 160, cm, 10/06/22 13:08:00 EDT, Height, 107.1,kg, [...] Care Team Personnel Name: Pj Benoit Position: [facility] Outreach Member Role: PCP Address: Address: [address] [place] [address]- Care Team Related Persons Name: SVEN ARGUETA
--- OUTSIDE RECORDS SUMMARY | 2023-04-07 00:27 | XMS_ITS | Continuity of Care Document ---
Author Name Unknown Organization [facility] Address [address] [place] [address]- Care Team Providers Care Floorleader Name Role Phone Not on Staff, PCP Primary Care Physician Unavail able [place] [facility] [place] - 09/05/[address] [address]- Discharge Disposition: A-D/C Home Attending Physician: Alena Ward MD Admitting Physician: Alena Ward MD Referring Physician: Not on Staff, Referring MD Allergies, Adverse Reactions, Alerts Substance Reaction Severity Status Contrast Dye IVP - Intravenous pyelogram Active Medications ibuprofen 600 mg oral tablet 600 mg, 1, tablet, By Mouth, 4 times a day, PRN, for 5 days, # 20 tablet, Refills 0, Tot. Refills 0, Acute 09/10/20 19:42:00 EST, for pain, 09/05/20 19:42:00 EST, Route to Pharmacy Electronically, [facility] #[id number], Partial fill upon patient... Start Date: 09/05/20 Stop Date: 09/10/20 Status: Ordered lidocaine 5% topical film 1 patch, Topically, Daily, PRN Pain , Moderate, # 5 patch, 0 Refills, Maintenance, 09/05/20 19:42:00 EST, [facility] #[id number], Partial fill upon patient request if the prescription is for a schedule II opioid drug., 1 patch Topically Daily,x5... Start Date: 09/05/20 Stop Date: 09/10/20 Status: Ordered Results Radiology Reports * Exam Date Time Procedure Performing Provider Status 09/05/20 7:03 PM Lumbar Spine 2 or 3 Views Aurea Day; Auth (Verified) Notes: (Lumbar Spine 2 or 3 Views) Reason For Exam: Trauma RESULT: Lumbar Spine 2 or 3 Views Lumbar Spine 2 or 3 Views Hx of Present Illness: slipped on ice, c o left buttock pain and left arm pain, head trauma; Reason: Trauma; Clinical Question(s): Other:; fracture COMPARISON: None. FINDINGS: 5 nonrib-bearing lumbar-type vertebral bodies. No bone lesions or fractures. Normal disc configuration. Normal alignment. No spondylolysis or spondylolisthesis. Tiny anterior endplate osteophyte formation Normal soft tissues. IMPRESSION: No fracture or malalignment. No significant WSN: [id number] Ordering Physician: Grazyna aWre Dictated By: Chandler Farnsworth MD Dictated Date/Time: 09/05/20 7:07 pm Reviewed By: Chandler Farnsworth MD Signed By: Chandler Farnsworth MD Signed Date/Time: 09/05/20 7:07 pm Transcribed By: KEILA Transcribed Date/Time: 09/05/20 7:06 pm * Exam Date Time Procedure Performing Provider Status 09/05/20 7:03 PM Chest 2 Views Frontal and Lat Laurie Day; Auth (Verified) Notes: (Chest 2 Views Frontal and Lat) Reason For Exam: Traumatic Chest Pain;Other: RESULT: Chest 2 Views Frontal and Lat Chest 2 Views Frontal and Lat Hx of Present Illness: slipped on ice, c o left buttock pain and left arm pain, head trauma; Reason: Other:; Traumatic Chest Pain; Clinical Question(s): Other:; Pneumothorax, Fracture COMPARISON: None. FINDINGS: LINES AND TUBES: None. LUNGS AND PLEURA: Clear lungs. Normal pulmonary vascularity. No pleural effusion. No pneumothorax. HEART, MEDIASTINUM AND BATSHEVA: Heart is normal in size. Normal upper mediastinal and hilar contour. BONES AND SOFT TISSUES: No acute abnormality. IMPRESSION: No acute abnormality. WSN: [id number] Ordering Physician: Grazyna Ware Dictated By: Susan Brooks MD Dictated Date/Time: 09/05/20 7:06 pm Reviewed By: Susan Brooks MD Signed By: Susan Brooks MD Signed Date/Time: 09/05/20 7:06 pm Transcribed By: CSShahram Transcribed Date/Time: 09/05/20 7:05 pm * Exam Date Time Procedure Performing Provider Status 09/05/20 7:03 PM Pelvis 1 or 2 Views Guscott , Laurie; Auth (Verified) Notes: (Pelvis 1 or 2 Views) Reason For Exam: Trauma RESULT: Pelvis 1 or 2 Views Pelvis 1 or 2 Views Hx of Present Illness: slipped on ice, c o left buttock pain and left arm pain, head trauma; Reason: Trauma; Clinical Question(s): Other:; fracture COMPARISON: None. FINDINGS: There is no fracture or dislocation. Normal hips and sacroiliac joints. Normal soft tissues. IMPRESSION: No displaced fracture. No dislocation. WSN: [id number] Ordering Physician: Grazyna Ware Dictated By: Chandler Farnsworth MD Dictated Date/Time: 09/05/20 7:06 pm Reviewed By: Chandler Farnsworth MD Signed By: Chandler Farnsworth MD Signed Date/Time: 09/05/20 7:06 pm Transcribed By: KEILA Transcribed Date/Time: 09/05/20 7:05 pm Vital Signs Most recent to oldest [Reference Range]: 1 2 Weight 98.7 kg (09/05/20 8:09 PM) 98.7 kg (09/05/20 5:09 PM) Oxygen Saturation [94-100 %] 98 % (09/05/20 8:09 PM) 100 % (09/05/20 5:09 PM) Pulse Rate [55-90 bpm] 86 bpm (09/05/20 8:09 PM) 65 bpm (09/05/20 5:09 PM) Blood Pressure [90-138/55-84 mm Hg] 152/ 97mm Hg *H* (09/05/20 8:09 PM) 127/75mm Hg (09/05/20 5:09 PM) Respiratory Rate [16-30 br/min] 20 br/mi n (09/05/20 8:09 PM) 16 br/min (09/05/20 5:09 PM) Temperature [96.8-100.4 DegF] 98.2 DegF (09/05/20 8:09 PM) 98.7 DegF (09/05/20 5:09 PM) Mode of Delivery (Oxygen) Room air (09/05/20 8:09 PM) Room air (09/05/20 5:09 PM) Blood pressure sites Arm, right (09/05/20 8:09 PM) Arm, right (09/05/20 5:09 PM) Temperature Route Oral (09/05/20 8:09 PM) Oral (09/05/20 5:09 PM) Dry Weight 98.7 kg (09/05/20 8:09 PM) 98.7 kg (09/05/20 5:09 PM) Weight Obtained Via Standing scale (09/05/20 5:09 PM) Dry Weight Obtained Via Standing scale (09/05/20 5:09 PM)
--- OUTSIDE RECORDS SUMMARY | 2023-04-07 00:27 | XMS_ITS | Continuity of Care Document ---
Author Name Unknown Organization [facility] Address [address] [place] [address]- Care Team Providers Care Manager Oncology Name Role Phone Pj Benoit Primary Care Physician [place] [facility] [place] - 01/05/[address] [address]- Attending Physician: Not on Staff, Attending MD [...] patch, 0 Refills, Maintenance, 09/05/20 19:42:00 EST, [facility] #[id number], Partial fill upon patient request if the prescription is for a schedule II opioid drug., 1 patch Topically Daily,x5... Start Date: 09/05/20 Stop Date: 09/10/20 Status: Ordered naproxen sodium 550 mg oral tablet 1 tablet, By Mouth, 2 times a day, PRN NEEDED FOR ARTHRITIS, # 20 tablet, 0 Refills, Maintenance, 10/20/22 13:11:00 EDT, [facility] #[id number], 160, cm, 10/06/22 13:08:00 EDT, Height, 107.1,kg, [...] Care Team Personnel Name: Pj Benoit Position: [facility] Outreach Member Role: PCP Address: Address: [address] [place] [address]- Care Team Related Persons Name: SVEN ARGUETA
--- OUTSIDE RECORDS SUMMARY | 2023-04-07 00:28 | XMS_ITS | Continuity of Care Document ---
Author Name Unknown Organization [facility] Address [address] [place] [address]- Care Team Providers Care Assembly Inspector Helper Name Role Phone Not on Staff, PCP Primary Care Physician Unavail able [place] [facility] [place]/03/21 - 06/02/21 [facility] [address] [address]- Allergies, Adverse Reactions, Alerts Substance Reaction Severity [...] 5 patch, 0 Refills, Maintenance, 09/05/20 19:42:00 [facility] #[id number], Partial fill upon patient request if the prescription is for a schedule II opioid drug., 1 patch Topically Daily,x5... Start Date: 09/05/20 Stop Date: 09/10/20 Status: Ordered Multivitamins with Folic Acid 1 mg oral capsule See Instructions, TAKE ONE DAILY BY MOUTH, # 100 capsule, 3 Refills, Maintenance, 05/31/21 8:43:00 [facility] #[id number], Partial fill upon patient request if the [...]
--- OUTSIDE RECORDS SUMMARY | 2023-04-07 00:28 | XMS_ITS | Continuity of Care Document ---
Author Name Unknown Organization [facility] Address [address] [place] [address]- Care Team Providers Care Rehab Director Occupational Therapist Name Role Phone Pj Benoit Primary Care Physician [place] [facility] [place](s): 09/07/22 - 10/07/22 [facility] [address] [place] [address]- Allergies, Adverse Reactions, Alerts Substance Reaction Severity [...] patch, 0 Refills, Maintenance, 09/05/20 19:42:00 EST, [facility] #[id number], Partial fill upon patient request if the prescription is for a schedule II opioid drug., 1 patch Topically Daily,x5... Start Date: 09/05/20 Stop Date: 09/10/20 Status: Ordered naproxen sodium 550 mg oral tablet 1 tablet, By Mouth, 2 times a day, PRN NEEDED FOR ARTHRITIS, # 20 tablet, 0 Refills, Maintenance, 10/03/22 12:08:00 EDT, [facility] #[id number], 160, cm, 09/20/22 15:22:00 EST, Height, 107.1,kg, [...] Care Team Personnel Name: Pj Benoit Position: [facility] Outreach Member Role: PCP Address: Address: [address] [place] [address]- Care Team Related Persons Name: SVEN ARGUETA
--- OUTSIDE RECORDS SUMMARY | 2023-04-07 00:28 | XMS_ITS | Continuity of Care Document ---
Author Name Unknown Organization [facility] Address [address] [place] [address] [address] [place] [address]- Care Team Providers Care Wire Stripper Name Role Phone Pj Benoit Primary Care Physician [phone] [place] [facility] [place] 10/14/22 - 11/13/[address] [place] [address]- Allergies, Adverse Reactions, Alerts Substance Reaction Severity [...] patch, 0 Refills, Maintenance, 09/05/20 19:42:00 EST, [facility] #[id number], Partial fill upon patient request if the prescription is for a schedule II opioid drug., 1 patch Topically Daily,x5... Start Date: 09/05/20 Stop Date: 09/10/20 Status: Ordered naproxen sodium 550 mg oral tablet 1 tablet, By Mouth, 2 times a day, PRN NEEDED FOR ARTHRITIS, # 20 tablet, 0 Refills, Maintenance, 10/20/22 13:11:00 EDT, [facility] #[id number], 160, cm, 10/06/22 13:08:00 EDT, Height, 107.1,kg, [...] Care Team Personnel Name: Pj Benoit Position: [facility] Outreach Member Role: PCP Address: Address: [address] [place] [address]- Care Team Related Persons Name: SVEN ARGUETA
--- OUTSIDE RECORDS SUMMARY | 2023-04-07 00:28 | XMS_ITS | Continuity of Care Document ---
Author Name Unknown Organization [facility] Address [address] [place] [address]- Care Team Providers Care Field Attendant Name Role Phone Pj Benoit Primary Care Physician [id number] Date(s): 09/01/21 - 10/01/[address] [address]- Allergies, Adverse Reactions, Alerts Substance Reaction Severity [...] patch, 0 Refills, Maintenance, 09/05/20 19:42:00 EST, [facility] #[id number], Partial fill upon patient request if the [...]
--- OUTSIDE RECORDS SUMMARY | 2023-04-07 00:28 | XMS_ITS | Continuity of Care Document ---
Author Name Unknown Organization [facility] Address [address] [place] [address]- Care Team Providers Care Car Dumper Operator Helper Name Role Phone Pj Benoit Primary Care Physician En[place] [facility] [place] Date(s): 09/26/22 - 10/26/[address] [address]- Allergies, Adverse Reactions, Alerts Substance Reaction Severity [...] patch, 0 Refills, Maintenance, 09/05/20 19:42:00 EST, [facility] #[id number], Partial fill upon patient request if the prescription is for a schedule II opioid drug., 1 patch Topically Daily,x5... Start Date: 09/05/20 Stop Date: 09/10/20 Status: Ordered naproxen sodium 550 mg oral tablet 1 tablet, By Mouth, 2 times a day, PRN NEEDED FOR ARTHRITIS, # 20 tablet, 0 Refills, Maintenance, 10/20/22 13:11:00 EDT, [facility] #[id number], 160, cm, 10/06/22 13:08:00 EDT, Height, 107.1,kg, [...] Team Personnel Name: Pj Benoit Position: [facility] Outreach Member Role: PCP Address: Address: [address] [place] [address]- Care Team Related Persons Name: SVEN ARGUETA
--- OUTSIDE RECORDS SUMMARY | 2023-04-07 00:28 | XMS_ITS | Continuity of Care Document ---
Author Name Unknown Organization [facility] ter Address [address] [place] [address]- Care Team Providers Care Ambulatory Care Coordinator Name Role Phone Not on Staff, PCP Primary Care Physician Unavail able [place] [facility] [place] 06/06/21 - 06/06/[address] [address] Discharge Disposition: A-D/C Walkout Attending Physician: Chet Orourke MD Admitting Physician: Chet Orourke MD Referring Physician: Chet Orourke MD Allergies, Adverse Reactions, Alerts Substance Reaction [...] Refills, Maintenance, 09/05/20 19:42:00 [facility], [facility] #[id number], Partial fill upon patient request if the prescription is for a schedule II opioid drug., 1 patch Topically Daily,x5... Start Date: 09/05/20 Stop Date: 09/10/20 Status: Ordered Multivitamins with Folic Acid 1 mg oral capsule See Instructions, TAKE ONE DAILY BY MOUTH, # 100 capsule, 3 Refills, Maintenance, 05/31/21 8:43:00 [facility] #[id number], Partial fill upon patient request if the [...] Active Panic attacks(Confirmed) Active Severe obesity(Confirmed) Active Vital Signs Most recent to oldest [Reference Range]: 1 Oxygen Saturation [94-100 %] 100 % (06/06/21 2:53 PM) Blood Pressure [90-138/55-84 mm Hg] 130/ 67mm Hg (06/06/21 2:53 PM) Respiratory Rate [16-30 br/min] 18 br/mi n (06/06/21 2:53 PM) Temperature [96.8-100.4 DegF] 99.3 DegF (06/06/21 2:53 PM) Mode of Delivery (Oxygen) Room air (06/06/21 2:53 PM) Blood pressure sites Arm, right (06/06/21 2:53 PM) Temperature Route Oral (06/06/21 2:53 PM) Dry Weight 107.3 kg (06/06/21 2:53 PM) Dry Weight Obtained Via Standing scale (06/06/21 2:53 PM) Social History Social History Type Response Smoking Status Former smoker, quit more than 30 days ago; Other: Quit 2 weeks ago; entered on: 05/20/21 Sex
--- OUTSIDE RECORDS SUMMARY | 2023-04-07 00:28 | XMS_ITS | Continuity of Care Document ---
Author Name Unknown Organization [facility] Address [address] [place] [address]- Care Team Providers Care Chemist Name Role Phone Not on Staff, PCP Primary Care Physician Unavail able [place] [facility] [place] Date(s): 06/01/21 - 07/30/21 [facility] [address] [place] [address] Attending Physician: Adriana Hdez MD Admitting Physician: Adriana Hdez MD Referring Physician: Calista Pate DO Allergies, Adverse Reactions, Alerts Substance Reaction Severity Status sulfa drugs Active Flagyl Active Contrast Dye IVP - Intravenous pyelogram Active Medications clindamycin topical 2% cream 1 application, Vaginally, Daily at bedtime, # 40 Gm, 0 Refills, Maintenance, 06/14/21 16:01:00 EST,Cream, [facility] #[id number], Partial fill upon patient request if the [...] 0 Refills, Maintenance, 06/14/21 13:40:00 EST, Tablet, [facility][id number], Partial fill upon patient request if the [...] patch, 0 Refills, Maintenance, 09/05/20 19:42:00 EST, [facility] #[id number], Partial fill upon patient request if the prescription is for a schedule II opioid drug., 1 patch Topically Daily,x5... Start Date: 09/05/20 Stop Date: 09/10/20 Status: Ordered miSOPROStol 200 mcg oral tablet See Instructions, Place 2 tabs between cheek and gums on EACH side, let dissolve for 30 min then swallow the rest with water, # 4 tablet, 1 Refills, Maintenance, 06/11/21 22:09:00 [id number], Partial fill upon patient request if... Start Date: 06/11/21 Status: Ordered Multivitamins with Folic Acid 1 mg oral capsule See Instructions, TAKE ONE DAILY BY MOUTH, # 100 capsule, 3 Refills, Maintenance, 05/31/21 8:43:00 EST, [facility] #[id number], Partial fill upon patient request if the [...] 0 Refills, Maintenance, 06/11/21 22:09:00 EST, Tablet, [facility] #[id number], Partial fill upon patient request if the [...]
--- OUTSIDE RECORDS SUMMARY | 2023-04-07 00:28 | XMS_ITS | Continuity of Care Document ---
Author Name Unknown Organization [facility] Address [address] [place] [address]- Care Team Providers Care Tenter Feeder Name Role Phone Pj Benoit Primary Care Physician [place] [facility] [place] 09/07/22 - 10/07/[address] [address]- Allergies, Adverse Reactions, Alerts Substance Reaction Severity [...] patch, 0 Refills, Maintenance, 09/05/20 19:42:00 EST, [facility] #[id number], Partial fill upon patient request if the prescription is for a schedule II opioid drug., 1 patch Topically Daily,x5... Start Date: 09/05/20 Stop Date: 09/10/20 Status: Ordered naproxen sodium 550 mg oral tablet 1 tablet, By Mouth, 2 times a day, PRN NEEDED FOR ARTHRITIS, # 20 tablet, 0 Refills, Maintenance, 10/03/22 12:08:00 EDT, [facility] #53610, 160, cm, 09/20/22 15:22:00 EST, Height, 107.1,kg, [...] HOSPITAL Outreach Member Role: PCP Address: Address: [address] [place] [address]- Care Team Related Persons Name: SVEN ARGUETA
--- OUTSIDE RECORDS SUMMARY | 2023-04-07 00:28 | XMS_ITS | Continuity of Care Document ---
Author Name Unknown Organization [facility] Address [address] [place] [id number]- Care Team Providers Care Splitting Machine Operator Name Role Phone Pj Benoit Primary Care Physician [phone] [phone] Date(s): 11/17/22 - 12/17/[address] [address]- Allergies, Adverse Reactions, Alerts Substance Reaction Severity [...] patch, 0 Refills, Maintenance, 09/05/20 19:42:00 EST, [id number], Partial fill upon patient request if the prescription is for a schedule II opioid drug., 1 patch Topically Daily,x5... Start Date: 09/05/20 Stop Date: 09/10/20 Status: Ordered naproxen sodium 550 mg oral tablet 1 tablet, By Mouth, 2 times a day, PRN NEEDED FOR ARTHRITIS, # 20 tablet, 0 Refills, Maintenance, 10/20/22 13:11:00 EDT, [facility][id number], 160, cm, 10/06/22 13:08:00 EDT, Height, 107.1,kg, [...] Care Team Personnel Name: Pj Benoit Position: [facility] Outreach Member Role: PCP Address: Address: [address] [place] [address]- Care Team Related Persons Name: SVEN ARGUETA
[2023-04-07] MEDS: 0.9 % Sodium Chloride 1,000 ML 999 ML IV (00:58)
[2023-04-07] MEDS: ondansetron HCL 4 MG/2 ML VIAL IVPUSH (01:00)
[2023-04-07] MEDS: Ketorolac Tromethamine 30 MG/ML VIAL IVPUSH (01:00)
== END 2023-04-07 01:42 | disposition home or self-care (01) ==
PROVIDERS: Registered Nurse Emergency; Emergency Provider Internal Medicine
DX: R10.30 Lower abdominal pain, unspecified (principal); R19.7 Diarrhea, unspecified; Z79.899 Other long term (current) drug therapy
CPT/HCPCS: 36415; 74176; 80053; 81003; 83690; 84702; 85025; 96374; 99283; 99284; J1885; J2405